=== PATIENT | male | born 1950 | race Caucasian/White ===

== ENCOUNTER 2016-03-11 12:25 | Emergency (ER) | payer MEDICARE ==
[2016-03-11 12:36] VITALS: TEMP 98.7; BMI 27.8
[2016-03-11] MEDS ORDERED: HYDROmorphone 1 MG INJECTION IM ONE (15:21)
[2016-03-11] MEDS ORDERED: DIPHTHERIA AND TETANUS (ADULT) 0.5 ML SYR IM ONE (15:26)
[2016-03-11] MEDS ORDERED: CEFAZOLIN 1 GM VIAL IV ONE (15:26)
[2016-03-11] MEDS ORDERED: HYDROmorphone 1 MG INJECTION IV ONE (15:26)
[2016-03-11] MEDS ORDERED: LIDOCAINE 2% 5 ML (PRESERVATIVE FREE) VIAL INF ONE (15:33)
[2016-03-11] MEDS ORDERED: BUPIVACAINE 0.25% 30 ML VIAL INF ONE (15:33)
--- NOTE | 2016-03-11 15:47 | DIRPT ---
CLINICAL DATA: Laceration to the left thumb tip. EXAM: LEFT FINGER(S) - 2+ VIEW COMPARISON: None. FINDINGS: There is soft tissue irregularity at the tip of the thumb. Findings compatible history of laceration. Alignment of the thumb is normal and there is no evidence for a fracture. IMPRESSION: No acute bone abnormality to the left thumb. Electronically Signed By: Mark Peterson M.D. On: 03/11/2016 15:44
[2016-03-11 16:07] LABS: AUTOMATED BASOPHIL 1.4 % (0-2); AUTOMATED LYMPH 29.5 % (17-44); AUTOMATED MONOCYTE 8.6 % (3-10); AUTOMATED NEUTROPHIL 59.5 % (45-76)
--- NOTE | 2016-03-11 16:08 | EDPRACDOC ---
- General Information Chief Complaint: Wound Information Source: Patient Mode of Arrival:: Car Home Medications: Home Medications Alprazolam [Xanax] 0.25 mg PO BID 02/02/14 Omeprazole [Prilosec] 20 mg PO QAM 02/02/14 Simvastatin [Zocor] 40 mg PO HS 02/02/14 Trazodone HCl 150 mg PO HS 02/02/14 Albuterol Sulfate [Ventolin] 2.5 mg NEB Q6H PRN 09/19/14 Metoprolol Tartrate 50 mg PO BID 09/21/14 Cyclobenzaprine HCl [Flexeril] 10 mg PO QHS 02/05/16 Magnesium Oxide [Magnesium] 500 mg PO DAILY 02/05/16 Pantoprazole Sodium [Protonix] 40 mg PO 0600 #30 tablet 02/09/16 Albuterol/Ipratropium Neb [Duoneb] 3 ml NEB RTQ6 PRN 03/11/16 Clopidogrel Bisulfate [Plavix] 75 mg PO QAM 03/11/16 Nebulizer [Erapid Nebulizer] 1 each MC .UNKNOWN 03/11/16 Oxycodone HCl/Acetaminophen [Percocet 5-325 mg Tablet] 1 tab PO Q4H PRN #30 tab 03/11/16 Sulfamethoxazole/Trimethoprim [Bactrim Ds Tablet] 1 tab PO BID #14 tab 03/11/16 Allergies/Adverse Reactions: Allergies Allergy/AdvReac Type Severity Reaction Status Date / Time Penicillins Allergy Mild Rash-Locali Verified 03/11/16 12:36 zed doxycycline Allergy Rash-Genera Verified 03/11/16 12:36 lized - 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 STATES HE CUT IT ON A TABLE SAW HE WAS USING. PT IS ON BLOOD THINNERS AND BLEEDING WAS DIFFICULT TO CONTROL. LACERATION IS WIDE BASED AND EXTENDS THE ENTIRE TIP OF THE THE THUMB. - Location LEFT THUMB Mechanism: Reports: Cut, Metal - Tetanus Status Last Tetanus: No - Pain Pain Severity: Moderate Bleeding: Reports: Controlled ED Past Medical History - History Reviewed Yes Nurses notes reviewed and agree except as marked - Patient Medical History Cardiac History: Reports: Coronary Artery Disease (2011 100% occ to lad STABLE COLLATERAL CIRCULATION), Hypertension, Heart Attack (2000), Cardiac Catheterization (1999, 2011 LVEF 45%), Hypercholesterolemia Respiratory History: Reports: COPD, Pneumonia GI/ History: Reports: Gastroesophageal Reflux Musculoskeletal History: Reports: Arthritis, Osteoarthritis Psychological History: Reports: Anxiety. Denies: Depression, Substance Use Disorder Systemic History: Reports: Cancer (melanoma, throat, basal cell carcinoma) Surgical History: Reports: Cholecystectomy, Angioplasty (coronary stent,), Cardiac Catheterization (1999, 2011 LVEF 45%), Tonsillectomy/Adnoidectomy, Other (penile prosthesis, throat ca, L knee, melanoma, R rotator cuff, B elbows) Date of Last Radiation Treatment: NA Date of Last Chemotherapy Date: NA - Family Medical History Reports: Hypertension (PARENTS), Diabetes (MOTHER), Cancer (MOTHER BONE CA), Stroke (FATHER). Denies: Cardiac Disorders - Social Medical History Smoking Status: Heavy tobacco smoker (5 or more cigarettes/day or daily pipe/ cigar) Social History: Denies: Substance Use Disorder EDM Review of Systems - Review of Systems ROS Negative Except as Marked: Yes All systems reviewed and were negative except as marked - Physical Exam Constitutional: Alert Oriented to: Time, Person, Place Last recorded Vital Signs: Last Vital Signs Temp 98.7 F 03/11/16 12:34 Pulse 64 03/11/16 15:59 Resp 18 03/11/16 15:59 BP 149/83 03/11/16 15:59 Pulse Ox 93 03/11/16 15:59 Oxygen Pulse Oxygen Saturation 93 O2 Device Room Air Oxygen Flow Rate Fraction of Inspired Oxygen ( FIO2) - HEENT Head: Normal ( normocephalic) Eye Exam: Normal (PERRL, EOMI, Sclera white) Oropharynx: Normal (Pharynx:Moist without exudate,Gums-no swelling) Nose: No Symptoms Reported (septum midline) Neck: Normal (FROM, trachea at midline) - Respiratory/Cardiovascular Respiratory: Normal - CTA (BBS clear to auscultation without adventitious sounds ) Cardiovascular: Bradycardia - GI Auscultation: Normal (NABS) Palpation: Normal (Soft,No rebound or guarding, non distended) Tenderness: Non tender Love's Sign: Negative Rectal Exam: Deferred - Musculoskeletal Back: Normal (Non-Tender) Extremities: Normal (Normal tone, Pulses 2+ No cyanosis or edema, FROM), Radial Pulse (2+), Other (LACERATION TO LEFT THUMB BASE TO TIP) - Integumentary Skin: Normal, Warm, Dry Lymphatics: Normal (no adenopathy) - Neurologic Memory Impaired: Normal Motor Function: Normal (Normal tone, Pulses 2+ No cyanosis or edema, FROM) Cranial Nerve: Normal (CN II-X11 intact sensation, strength 5/5) Cerebellar: Normal Mood Description: Normal Perception: Normal ED Procedures - Nerve Block Procedure Prep: Betadine Site: LEFT THUMB Injection Name and Amount: 2% LIDOCAINE PLAIN 5ML. 0.25% MARCAINE PLAIN 5ML Note/Adverse events: PT TOLERATED WELL - Differential Diagnosis Laceration - Re-evaluation Re-evaluation 1 Re-evaluation Time: 17:17 (SPOKE WITH DR WINTERS ABOUT THIS PT. STATES TO ATTEMPT TO SUTURE THE AREA, SEND PT HOME ON ANTIBIOTICS, PAIN MEDS AND SEND TO ORTHO IN 2 DAYS. UNABLE TO CLOSE WITH SUTURES. WITH COVER WITH ADAPTIC AND BIG BULKY DRESSING. ) - Results 03/11/16 15:54 03/11/16 15:54 Decision Time to Discharge: 17:18 - Departure Disposition: Home Condition: Stable Final Diagnosis: Laceration - injury Instructions: Laceration (ED) Education/Counseling Given To: Patient Education/Counseling Given Regarding: Diagnosis, Treatment, Prognosis, Follow Up Referrals: Nitza Cano MD [Primary Care Provider] - One Week Prescriptions: New Oxycodone HCl/Acetaminophen [Percocet 5-325 mg Tablet] 1 tab PO Q4H PRN #30 tab PRN Reason: Pain Sulfamethoxazole/Trimethoprim [Bactrim Ds Tablet] 1 tab PO BID #14 tab No Action Trazodone HCl 150 mg PO HS Omeprazole [Prilosec] 20 mg PO QAM Simvastatin [Zocor] 40 mg PO HS Alprazolam [Xanax] 0.25 mg PO BID Albuterol Sulfate [Ventolin] 2.5 mg NEB Q6H PRN PRN Reason: Wheezing Metoprolol Tartrate 50 mg PO BID Magnesium Oxide [Magnesium] 500 mg PO DAILY Cyclobenzaprine HCl [Flexeril] 10 mg PO QHS Pantoprazole Sodium [Protonix] 40 mg PO 0600 #30 tablet Clopidogrel Bisulfate [Plavix] 75 mg PO QAM Albuterol/Ipratropium Neb [Duoneb] 3 ml NEB RTQ6 PRN PRN Reason: Shortness Of Breath Nebulizer [Erapid Nebulizer] 1 each MC .UNKNOWN Additional Instructions: KEEP DRESSING IN PLACE UNTIL SEEN BY ORTHOPEDIC. RETURN TO THE ED FOR WORSENING SYMPTOMS OR CONCERNS. TAKE ALL ANTIBIOTICS PRESCRIBED. ICE AND ELEVATION IS VERY IMPORTANT. [facility] Address: [address] [place] [address] [id number], [place] [address]
[2016-03-11 16:30] LABS: BLOOD UREA NITROGEN 13 MG/DL (9-20); CALC CORRECTED 9.2 MG/DL (8.4-10.2); CALCULATED OSMOLALITY 269 MOs/Kg (270-290); CHLORIDE 102 mEq/L (98-107); GLUCOSE 103 MG/DL (70-99); SODIUM LEVEL 140 mEq/L (137-146); TOTAL PROTEIN 7.1 G/DL (6.3-8.2)
[2016-03-11 18:08] VITALS: BP 141/74; PULSE 66
== END 2016-03-11 17:52 | disposition home or self-care (01) ==
LOC: ED 12:25 → EDMC 17:52
DX: S61.012A Laceration without foreign body of left thumb without damage to nail, initial encounter (principal); W31.2XXA Contact with powered woodworking and forming machines, initial encounter; Y93.9 Activity, unspecified; Z23 Encounter for immunization
CPT/HCPCS: 36415; 64402; 73140; 80053; 85025; 90471; 90714; 96365; 96375; 99283; J0690; J1170; J2001; J3490; S0020